=== PATIENT | female | born 2000 | race Caucasian/White ===

== ENCOUNTER 2022-07-22 02:27 | Emergency (ER) | payer OTHER, SELFPAY ==
--- NOTE | ~2022-07-22 | XR_ITS ---
XR forearm LT 2V, XR elbow LT min 3V 07/22/2022 03:32 Indication: Status post fall. Procedure: 2 views left forearm and 4 views left elbow Comparison: No prior studies for comparison. Findings: No fracture, subluxation or dislocation. No significant soft tissue abnormality. No foreign bodies. Impression: 1: No acute bone or joint abnormality. Reviewed, dictated and finalized at location B. Impression: 1: No acute bone or joint abnormality. Impression: 1: No acute bone or joint abnormality.
[2022-07-22 02:32] VITALS: BP 123/107; PULSE 101; RESP 20; TEMP 36.6; O2SAT 100
--- NOTE | 2022-07-22 02:49 | ED.GENADULT ---
HPI - General Adult General Chief complaint: Extremity Injury, Upper Stated complaint: Left Arm Injury Time Seen by Provider: 07/22/22 02:38 Source: RN notes reviewed History of Present Illness HPI narrative: Patient presents emergency department from home for left elbow and forearm pain. Patient states that prior to arrival she was sitting when she fell backwards striking her left elbow on the ground states that since that time she had pain in the elbow and the forearm pain is worse with extension of the arm she denies any pain in the shoulder as she denies striking her head or loss of consciousness she denies any numbness or tingling or any other symptoms Related Data Allergies Allergy/AdvReac Type Severity Reaction Status Date / Time No Known Allergies Allergy Verified 07/22/22 02:30 Review of Systems Review of Systems: Gen.: Denies fevers or chills Musculoskeletal: See HPI Neuro: Denies numbness, tingling, weakness Skin: Denies rash Endo: Denies DM PMFSH Past Medical History Medical History (Updated 07/22/22 @ 04:05 by Jovani Hoffman DO) Patient denies significant medical history Family History Family History (Updated 04/11/19 @ 13:12 by DOCTOR UNKNOWN) Other Family history of elevated blood lipids Hypertension Social History Social History Smoking status: Never smoker Second hand tobacco smoke exposure: No Exam Narrative: APPEARANCE: No acute distress, nontoxic, resting in bed Eyes: EOMI HEENT: Normocephalic, atraumatic, RESPIRATORY: No respiratory distress MUSCULOSKELETAl: [] NEURO: Awake and alert. Following commands, speech normal, no focal deficits SKIN:: Warm, dry. Normal Color no rash or lesions Course Course Emergency Course: Discussed with patient results of workup and diagnosis. Discussed need for follow-up with primary care, proper use of medication, and reasons to return to the emergency department. Patient understands and agrees to current treatment plan Vital Signs Vital signs: Vital Signs Temperature 97.8 F 07/22/22 02:32 Pulse Rate 101 H 07/22/22 02:32 Respiratory Rate 20 07/22/22 02:32 Blood Pressure 123/107 H 07/22/22 02:32 Pulse Oximetry 100 07/22/22 02:32 Oxygen Delivery Room Air 07/22/22 02:32 Temperature 97.8 F 07/22/22 02:32 Pulse Rate 89 07/22/22 03:18 Respiratory Rate 16 07/22/22 03:18 Blood Pressure 112/94 H 07/22/22 03:18 Pulse Oximetry 95 07/22/22 03:18 Oxygen Delivery Room Air 07/22/22 02:32 Medical Decision Making Vital Signs Vital Signs: Vital Signs Temperature 97.8 F 07/22/22 02:32 Pulse Rate 101 H 07/22/22 02:32 Respiratory Rate 20 07/22/22 02:32 Blood Pressure 123/107 H 07/22/22 02:32 Pulse Oximetry 100 07/22/22 02:32 Oxygen Delivery Room Air 07/22/22 02:32 Temperature 97.8 F 07/22/22 02:32 Pulse Rate 89 07/22/22 03:18 Respiratory Rate 16 07/22/22 03:18 Blood Pressure 112/94 H 07/22/22 03:18 Pulse Oximetry 95 07/22/22 03:18 Oxygen Delivery Room Air 07/22/22 02:32 Imaging Data Attestation: I personally reviewed and interpreted this imaging study as follows: My impression: Left elbow x-ray shows no acute fracture Left forearm x-ray shows no acute fracture Discharge Plan Discharge Clinical Impression: Contusion of elbow, left Patient Disposition: Home, Self-Care Condition: Stable Instructions: Antibiotic Form, Contusion in Adults (ED) Additional Instructions: Return for increasing pain numbness or tingling in the extremities or any other symptoms of concern Prescriptions: New ibuprofen 600 mg tablet 600 mg PO TID PRN (Reason: pain) Qty: 14 0RF No Action albuterol sulfate [ProAir HFA] 90 mcg/actuation HFA aerosol inhaler 1 inhalation INHALATION Q4H PRN (Reason: shortness of breath or wheezing) Qty: 3 3RF levonorgestrel-ethinyl estrad [Lessina] 0.1-20 mg-mcg tab
[2022-07-22] MEDS: IBUPROFEN 600 MG TABLET PO (02:55)
[2022-07-22 03:18] VITALS: BP 112/94; PULSE 89; RESP 16; O2SAT 95
[2022-07-22 04:14] VITALS: BP 115/60; PULSE 87; RESP 16; O2SAT 99
== END 2022-07-22 04:12 | disposition home or self-care (01) ==
PROVIDERS: Emergency Provider Emergency Medicine; PCP Family Medicine
DX: S50.02XA Contusion of left elbow, initial encounter (principal); W18.39XA Other fall on same level, initial encounter
CPT/HCPCS: 73080; 73090; 99283; A4565; A9270